=== PATIENT | female | born 1980 | race African-American/Black ===

== ENCOUNTER 2018-01-13 16:42 | Inpatient (IN) | payer OTHER ==
[~2018-01-13] VITALS: Ht 152.4 cm; Wt 73.9 kg
[2018-01-13 17:27] LABS: BASOPHILS % 0.7 % (0.0-2.0); EOSINOPHILS % 0.7 % (0.0-5.0); HEMATOCRIT. 35.8 % (36.0-48.0); HEMOGLOBIN. 11.8 g/dL (12.0-16.0); LYMPHOCYTES % 21.5 % (20.0-50.0); MEAN CORPUSCULAR HEMOGLOBIN 25.9 pg (28.0-32.0); MEAN CORPUSCULAR VOLUME 78.6 fL (81.0-99.0); MEAN PLATELET VOLUME 7.7 fl (7.4-10.4); MONOCYTES % 8.3 % (2.0-8.0); NEUTROPHILS % 68.8 % (40.0-76.0); PLATELET 335 x1000/uL (130-400); RED BLOOD CELL COUNT 4.56 mill/uL (4.2-5.4); RED CELL DISTRIBUTION WIDTH 14.8 % (11.6-14.6)
[2018-01-13 17:28] LABS: CHLORIDE 104 mEq/L (98-107)
[2018-01-13 17:29] LABS: PROTHROMBIN TIME 10.8 sec (9.4-11.6)
[2018-01-13 17:57] LABS: B-HCG QUANTITATIVE 15083 mIU/mL (<3)
[2018-01-13 19:45] LABS: CLARITY URINE CLOUDY (CLEAR); COLOR URINE ORANGE (YELLOW); KETONES URINE 2+ (NEGATIVE); LEUKOCYTE ESTERASE URINE TRACE (NEGATIVE); NITRITE URINE NEGATIVE (NEGATIVE); OCCULT BLOOD URINE 3+ (NEGATIVE); PROTEIN URINE 1+ (NEGATIVE); UROBILINOGEN URINE 0.2 E.U./dL (0.2-1.0)
[2018-01-13] MEDS ORDERED: SODIUM CHLORIDE 0.9% 1,000 ML IV ONE ×2 (22:24→22:40)
[2018-01-13] MEDS ORDERED: CEFTRIAXONE 1 G PREMIX 50 ML IV ONE (22:45)
[2018-01-13] MEDS ORDERED: RHO(D) IMMUNE GLOBULIN 300 MCG/SYR IM ONE (23:00)
[2018-01-13] MEDS ORDERED: ONDANSETRON HCL 4MG/2ML VIAL IV STA (23:06)
[2018-01-13] MEDS ORDERED: MORPHINE SULFATE 4 MG/ML CPJ (NOT FOR IM USE) IV STA (23:06)
[2018-01-14] VITALS: BP 99/62
[2018-01-14] MEDS ORDERED: CETI5TAB5 MT (03:44)
[2018-01-14 03:45] VITALS: BP 108/73
[2018-01-14 03:50] VITALS: BP 108/73
[2018-01-14 08:00] VITALS: BP 111/72
[2018-01-14] MEDS ORDERED: PROPOFOL 200MG/20ML VIAL IV ONE (09:24)
[2018-01-14] MEDS ORDERED: FENTANYL CITRATE/PF 50MCG/ML 2ML VIAL ONE (09:24)
[2018-01-14] MEDS ORDERED: MIDAZOLAM HCL 2 MG/2 ML VIAL ONE (09:24)
[2018-01-14] MEDS ORDERED: NEOSTIGMINE METHYLSULFATE 1MG/ML 10 ML VIAL ONE (09:24)
[2018-01-14] MEDS ORDERED: ROCURONIUM BROMIDE 10MG/ML VIAL 5ML IV ONE (09:24)
[2018-01-14] MEDS ORDERED: METOCLOPRAMIDE HCL 10MG/2ML VIAL ONE (09:25)
[2018-01-14] MEDS ORDERED: GLYCOPYRROLATE 0.2 MG/ML 2ML VIAL ONE (09:25)
[2018-01-14] MEDS ORDERED: EPHEDRINE SULFATE 50MG/ML VIAL ONE (09:25)
[2018-01-14] MEDS ORDERED: CEFAZOLIN SODIUM 1000MG/VIAL ONE (09:25)
[2018-01-14] MEDS ORDERED: ONDANSETRON HCL 4MG/2ML VIAL ONE (09:25)
[2018-01-14] MEDS ORDERED: SUCCINYLCHOLINE CHLORIDE 200MG/10ML VIAL IV ONE (09:25)
[2018-01-14] MEDS ORDERED: SODIUM CHLORIDE 0.9% 10ML VIAL ONE (09:25)
[2018-01-14] MEDS ORDERED: LIDOCAINE HCL/PF 1% 10 MG/ML 5ML VIAL ONE ×2 (09:25→12:22)
[2018-01-14] MEDS ORDERED: SODIUM CHLORIDE 0.9% 1,000 ML IV ONE (10:27)
[2018-01-14] MEDS ORDERED: MEPERIDINE HCL/PF 25MG/ML CPJ IV PRN ×2 (10:30)
[2018-01-14] MEDS ORDERED: ONDANSETRON HCL 4MG/2ML VIAL IV PRN ×2 (10:30→10:45)
[2018-01-14] MEDS ORDERED: HYDROMORPHONE HCL/PF 2MG/ML CPJ IV PRN (10:30)
[2018-01-14] MEDS ORDERED: BACITRACIN ZINC 15GM TUBE TOP ONE ×2 (10:37→12:20)
[2018-01-14] MEDS ORDERED: IODIXANOL 320MG/ML 200ML BOTTLE ONE (12:19)
[2018-01-14] MEDS ORDERED: HEPARIN SODIUM 1,000 UNIT/1ML VIAL IV ONE ×2 (12:21→12:36)
[2018-01-14] MEDS ORDERED: THROMBIN (BOVINE) 5000 UNITS/VIAL TOP ONE (12:21)
[2018-01-14] MEDS ORDERED: NORMAL SALINE 0.9% 10 ML SYR ONE (12:21)
[2018-01-14] MEDS ORDERED: BUPIVACAINE HCL 0.5% (5MG/ML) 50ML ONE (12:22)
[2018-01-14] MEDS: LACTATED RINGERS 1,000 ML IV SCH (15:50)
[2018-01-14 16:00] VITALS: BP 104/58
[2018-01-14] MEDS: HYDROMORPHONE HCL/PF 2MG/ML CPJ IM PRN (18:31)
[2018-01-14 20:00] VITALS: BP 101/61
[2018-01-15] VITALS: BP 99/62
[2018-01-15] MEDS: HYDROMORPHONE HCL/PF 2MG/ML CPJ IM PRN ×2 (03:00→14:39)
[2018-01-15] MEDS: LACTATED RINGERS 1,000 ML IV SCH ×3 (03:03→18:45)
[2018-01-15 04:00] VITALS: BP 101/60
[2018-01-15 07:50] LABS: HEMATOCRIT 29.2 % (36.0-48.0); HEMOGLOBIN 9.7 g/dL (12.0-16.0); MEAN CORPUSCULAR HEMOGLOBIN 26.4 pg (28.0-32.0); MEAN CORPUSCULAR VOLUME 79.2 fL (81.0-99.0); PLATELET 270 x1000/uL (130-400); RED BLOOD CELL COUNT 3.68 mill/uL (4.2-5.4)
[2018-01-15 08:00] VITALS: BP 103/59
[2018-01-15 12:00] VITALS: BP 113/90
[2018-01-15 16:00] VITALS: BP 113/80
[2018-01-15 20:00] VITALS: BP 110/72
[2018-01-16] VITALS: BP 105/77
[2018-01-16 04:00] VITALS: BP 108/16
[2018-01-16 08:00] VITALS: BP 116/87
[2018-01-16] MEDS: LACTATED RINGERS 1,000 ML IV SCH ×2 (10:45→18:38)
[2018-01-16] MEDS ORDERED: GENTAMICIN 80MG PREMIX 100 ML IV SCH (11:30)
[2018-01-16 12:00] VITALS: BP 112/75
[2018-01-16] MEDS: ACETAMINOPHEN 325MG TABLET PO PRN (12:34)
[2018-01-16] MEDS: CLINDAMYCIN 900 MG in DEXTROSE 5% WATER 50 ML IV SCH ×2 (13:00→21:00)
[2018-01-16] MEDS ORDERED: GENTAMICIN 120MG PREMIX 100 ML IV NR (14:00)
[2018-01-16 16:00] VITALS: BP 111/68
[2018-01-16 20:00] VITALS: BP 115/78
[2018-01-17] VITALS: BP 117/76
[2018-01-17 04:00] VITALS: BP 113/72
[2018-01-17] MEDS: CLINDAMYCIN 900 MG in DEXTROSE 5% WATER 50 ML IV SCH (05:00)
[2018-01-17] MEDS: GENTAMICIN 80MG PREMIX 100 ML IV SCH ×2 (06:00→14:00)
[2018-01-17 08:00] VITALS: BP 110/70
[2018-01-17] MEDS: LACTATED RINGERS 1,000 ML IV SCH (10:45)
[2018-01-17] MEDS: ACETAMINOPHEN 325MG TABLET PO PRN (11:07)
[2018-01-17 12:00] VITALS: BP 107/65
[2018-01-17 16:00] VITALS: BP 108/72
[2018-01-17 17:09] VITALS: BP 108/72
== END 2018-01-17 17:35 | disposition home or self-care (01) | DRG 777 ==
LOC: ER 16:42 → 6EST 23:03 → ENRESERV 01-14 01:51
PROVIDERS: ADMIT Obstetrics & Gynecology; ATTEND Obstetrics & Gynecology
PROC: 10T20ZZ Resection of Products of Conception, Ectopic, Open Approach (ICD-10-PCS; 2018-01-14)
PROC: 30233S1 Transfusion of Nonautologous Globulin into Peripheral Vein, Percutaneous Approach (ICD-10-PCS; 2018-01-14)
PROC: 0UB60ZZ Excision of Left Fallopian Tube, Open Approach (ICD-10-PCS; principal; 2018-01-14 06:30)
DX: O00.90 Unspecified ectopic pregnancy without intrauterine pregnancy (principal); K66.1 Hemoperitoneum; D62 Acute posthemorrhagic anemia
CPT/HCPCS: 36415; 76801; 80053; 81003; 81025; 84702; 85025; 85027; 85610; 86850; 86886; 86900; 88305; 90384; 96361; 96365; 96375; 99285; A4216; J0330; J0690; J0696; J1170; J1580; J1644; J2175; J2250; J2270; J2405; J2704; J2710; J2765; J3010; J3490; J7030; J7060; J7120; Q9967